=== PATIENT | female | born 1975 ===

== ENCOUNTER 2018-09-07 05:44 | Day surgery (SDC) | payer BC ==
[2018-08-28 13:55] VITALS: BMI 39.0
[2018-09-07] MEDS ORDERED: ceFAZolin 1 gm in NS 1 GM/100 ML BAG IVPB ONE ×2 (07:42→08:13)
[2018-09-07] MEDS ORDERED: Iodixanol 320 MG/ML 200 ML BOTTLE IV ONE (07:42)
[2018-09-07] MEDS ORDERED: Midazolam 2 MG/2 ML VIAL ONE (07:53)
[2018-09-07] MEDS ORDERED: Propofol 10 mg/ml Inj (20 ML) ONE (07:53)
[2018-09-07] MEDS ORDERED: Rocuronium 10 mg/ml (5 ml) ONE ×2 (08:09→09:35)
[2018-09-07] MEDS ORDERED: Neostigmine Methylsulfate 3mg/3ml Syringe IV ONE (09:56)
[2018-09-07] MEDS ORDERED: HYDROmorphone 0.5 mg/0.5 ml ISec IVP PRN (10:00)
--- NOTE | 2018-09-07 10:00 | PCM.SURG1 ---
Surgeon's Initial Post Op Note - Surgeon's Notes Surgeon: Dr. Davis Branch Service Representative: Dr. Kong Type of Anesthesia: General Endo Pre-Operative Diagnosis: Symptomatic Cholelithiasis Operative Findings: See operative dictation Post-Operative Diagnosis: Acute cholecystitis Operation Performed: Laparoscopic Cholecystectomy Specimen/Specimens Removed: Gallbladder Estimated Blood Loss: EBL {In ML}: 20 Blood Products Given: N/A Drains Used: No Drains Post-Op Condition: Good Date of Surgery/Procedure: 09/07/18 Time of Surgery/Procedure: 10:00
[2018-09-07] MEDS ORDERED: Oxycodone/Acetaminophen 5/325 mg Tab PO PRN (10:01)
[2018-09-07] MEDS ORDERED: HYDROmorphone 0.5 mg/0.5 ml ISec ONE (10:03)
[2018-09-07 14:44] VITALS: BP 127/68; PULSE 75; RESP 18; TEMP 97.6; O2SAT 98
--- NOTE | 2018-09-07 16:45 | RAD ---
Date of service: 09/07/2018 PROCEDURE: Intraoperative Fluoroscopy. HISTORY: CHOLECYSTITIS FINDINGS: Fluoroscopic assistance was provided for intraoperative cholangiogram. Please refer to the operative report from DIAMANTE Velasquez. Total fluoroscopic time (continuous mode) utilized during the procedure 40.0 seconds. Dose report: DLP [id number] (mGy/m2)
--- NOTE | 2018-09-07 20:50 | OP ---
PROCEDURE DATE: 09/07/2018 PREOPERATIVE DIAGNOSES: Cholecystitis, cholelithiasis. POSTOPERATIVE DIAGNOSES: Cholecystitis, cholelithiasis. PROCEDURE CARRIED OUT: Laparoscopic cholecystectomy with C-arm cholangiogram. SURGEON: Ron Davis Jr., MD DAIRY HUSBANDMAN: David Kong DO ANESTHESIOLOGIST: Ms. Lam INDICATION: The patient is a 43-year-old woman, slightly overweight with a history of abdominal pain and on subsequent evaluation found to have a gallstone. OPERATIVE FINDINGS: The cholangiogram carried out through the cystic duct, showed a nondilated duct, free flow into the duodenum, good visualization of the hepatic radicles and no evidence of any stone or stricture. The rest of the intraoperative findings were unremarkable. DESCRIPTION OF PROCEDURE: The patient was given general anesthesia and intravenous antibiotics. Venodyne boots were applied. A Tegan trocar was inserted by cut-down technique. Two additional 5-mm trocars were placed. Cystic duct, cystic artery, liver bed and a view of safety was obtained. After this had been done, we carried out a cholangiogram with the above-mentioned findings. We then clipped the cystic duct, clipped the cystic artery. We removed the gallbladder from the bed. We obtained excellent hemostasis. We then irrigated this out. We had a blood loss of approximately 10 mL. We then closed the abdomen with running sutures of Novafil and PDS and a closure device at the umbilicus. There were no operative complications or problems. The patient tolerated the procedure well. Operation carried out, laparoscopic cholecystectomy with C-arm cholangiogram. The gallbladder was removed in a bag through the umbilical port. Ron Davis Jr., MD cc: Lang Gill MD
== END 2018-09-07 14:45 | disposition home or self-care (01) ==
LOC: C.SDS 05:44
PROVIDERS: ATTEND Surgery Vascular Surgery
DX: K80.10 Calculus of gallbladder with chronic cholecystitis without obstruction (principal)
CPT/HCPCS: 36415; 47563; 86703; 88304; J0690; J1100; J1170; J1885; J2001; J2250; J2405; J2704; J2710; J3010; Q9966